=== PATIENT | female | born 1990 | race Caucasian/White ===

== ENCOUNTER → 2020-02-26 13:01 | Outpatient (CLI) | payer OTHER, SELFPAY ==
[2020-02-26 12:54] VITALS: BMI 28.2
--- NOTE | 2020-02-26 13:01 | RAD_ITS ---
STUDY: X-RAY - LEFT KNEE REASON FOR EXAM: History of lateral patellar subluxation. TECHNIQUE: 2 view(s) of the knee. COMPARISON: None. FINDINGS: Normal visualized distal femur. Normal visualized proximal tibia and fibula. Normal proximal tibiofibular articulation. Normal medial femorotibial compartment. Normal lateral femorotibial compartment. Although the patellofemoral articulation is congruent on the sunrise view, there is lateral subluxation of the patella on the AP upright view. The soft tissue structures are unremarkable. RAD/Knee 1 or 2 Views IMPRESSION: Lateral subluxation of the patella only visualized on the upright view. Electronically Signed: Jim Huggins MD at 13:49 EDT Tel , Service support ,
== END ==
LOC: HPRAD 13:01
PROVIDERS: PCP Nurse Practitioner Family; Referring Provider Orthopaedic Surgery; Visit Provider Orthopaedic Surgery
DX: M25.362 Other instability, left knee (principal)
CPT/HCPCS: 73560

== ENCOUNTER → 2020-03-05 12:55 | Outpatient (CLI) | payer OTHER, SELFPAY ==
[2020-02-26 12:54] VITALS: BMI 28.2
--- NOTE | 2020-03-05 12:56 | MRI_ITS ---
STUDY: MRI LEFT KNEE REASON FOR EXAM: Left knee pain, patellar instability, symptoms for 10 years, prior surgery. TECHNIQUE: Standardized fat and water weighted pulse sequences were obtained in all 3 orthogonal planes. COMPARISON: Radiographs 02/26/2020. FINDINGS: Normal medial meniscus. Normal hyaline cartilage of the medial femorotibial compartment. Normal medial femoral condyle and tibial plateau. Normal medial collateral ligamentous complex (MCL). Normal distal semimembranosus, gracilis and semitendinosus tendons. Normal lateral meniscus. Normal hyaline cartilage of the lateral femorotibial compartment. Normal lateral femoral condyle and tibial plateau. Normal proximal tibiofibular articulation. Normal lateral collateral (fibular) ligament. Normal popliteus tendon. Normal biceps femoris tendon. Normal anterior cruciate ligament (ACL). Normal posterior cruciate ligament (PCL). There is lateral tilt and lateral subluxation of the patella (T2 axial image 10). There is low to intermediate grade chondromalacia adjacent to the inferior median ridge (T2 axial image 10). Normal medial and lateral patellar retinaculum. Normal quadriceps tendon. There is patella stephanie. There is mild edema in Hoffa''s fat pad inferior to the lateral aspect of the patellofemoral articulation (T2 sagittal images 18, 19). There is a small joint effusion. There is an intra-articular body or focal synovitis at the medial aspect of the patellofemoral articulation (T2 sagittal images 13, 14) measuring 0.7 cm in length. There is a small popliteal cyst (T2 coronal images 8, 9). The otherwise visualized osseous structures are unremarkable. 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 Intra-articular body or focal synovitis at the medial aspect of the patellofemoral articulation. Small popliteal cyst. Electronically Signed: Jim M. Huggins, MD at 14:20 EDT Tel , Service support ,
== END ==
PROVIDERS: PCP Nurse Practitioner Family; Referring Provider Orthopaedic Surgery; Visit Provider Orthopaedic Surgery
DX: M22.8X2 Other disorders of patella, left knee (principal)
CPT/HCPCS: 73721

== ENCOUNTER → 2020-04-03 | Outpatient (CLI) | payer OTHER, SELFPAY ==
[2020-04-03 13:47] VITALS: BMI 28.2
[2020-04-09 08:48] LABS: HPV APTIMA, High Risk Negative (Negative)
== END | disposition home or self-care (01) ==
LOC: LABSPEC 16:29
PROVIDERS: PCP Nurse Practitioner Family; Referring Provider Nurse Practitioner Women's Health; Visit Provider Nurse Practitioner Women's Health
DX: Z12.4 Encounter for screening for malignant neoplasm of cervix (principal)
CPT/HCPCS: 87624; 88175; G0145

== ENCOUNTER 2020-04-23 15:35 | Observation (INO) | payer OTHER, SELFPAY ==
[2020-03-20 12:38] VITALS: BMI 28.2
--- NOTE | 2020-03-26 03:37 | HP_ITS ---
I have re-examined the patient. There are no clinical changes since date of exam. Intake Intake Visit Reasons: LEFT KNEE Is patient in pain?: Yes Allergies acetaminophen [From Vicodin] Adverse Reaction (Verified 04/30/17 21:52) Rash hydrocodone [From Vicodin] Adverse Reaction (Verified 04/30/17 21:52) Rash Medications hydroxyzine HCl 10 mg tablet 10 mg PO tab 02/26/20 [History Confirmed 03/20/20] sertraline 50 mg tablet tab PO 02/26/20 [History Confirmed 03/20/20] buspirone 7.5 mg tablet 7.5 mg PO tab 03/20/20 [History Confirmed 03/20/20] PFSH Medical History (Updated 02/26/20 @ 12:54 by Melba Gasca) Anxiety (Acute) Arthritis (Acute) Depression (Acute) Hyperlipemia (Acute) Social History (Updated 03/26/20 @ 15:[address] Steffanie Greene DO) Smoking Status: Never smoker HPI LEFT KNEE: Surgical H&P: Yes Details: Parts of this documentation were recorded by a scribe, this documentation accurately reflects the service provided and the decisions made by me, Dr. Steffanie Greene DO 03/20/20 1237. ARIANA LAUREN is a 29 year old F here today for F/U on right knee after having MRI of the knee for multiple dislocations of the patella. Patient states she is having increased pain but it may be due to working in the garden more. States that after her last appointment she hyperextended the right knee while chasing her dog. Denies numbness, tingling or other associated symptoms. patellofme pain, not better with nsaids. Denies numbness, tingling or other associated symptoms. ROS Musc Reports joint pain, Reports joint swelling, Denies numbness, Denies radiating pain into limb, Reports stiffness, Denies tingling Skin/Breast Denies redness, Denies lesions, Denies itching, Denies rash, Denies skin swelling Neuro No numbness, No tingling Ortho Exam Right Knee Knee ROM: Yes ROM-Extension -20 to 0, Yes ROM-Flexion 0-140, Yes ROM-Passive Extension -10 to 0, Yes ROM-Passive Flexion 0-140 Examination: Yes Crepitus, Yes Pain with flexion Stability: NML: Anterior Drawer, NML: Belkis, NML: Posterior Drawer, NML: Valgus 0, NML: Valgus 30, NML: Varus 0, NML: Varus 30, NML: Dial 90, NML: Dial 30 Apprehension with Lateral Translation: Yes Patellar Tilt Normal: No Patella Grind: Yes Assessment & Plan Problems 1. Subluxation of left patella, subsequent encounter S83.002D 2. Maltracking of left patella M22.8X2 Plan Personally reviewed patients MRI of the left knee. Patient educated that she has patellofemoral friction syndrome and Lateral tilt and lateral subluxation of the patella. Treatment options include do nothing or PT or surgery option. Educated that surgery option is a MPFL repair along with a TTO of the left knee. If this is not effective then she would be looking at another surgical option of pf arthroplasty dep on scope findings. Reviewed the pre-operative plans with the patient. Risks and benefits of the procedure were fully explained, including but not limited to infection, neurovascular injury, continued pain, arthritis, stiffness, need for further surgery, re-injury, DVT, PE, general risks of anesthesia, and loss of limb or life. The patient understands all the risks and does wish to proceed with written consent for left knee arthroscopy patellofemoral chondroplasty possible MPFL reconstruction possible tibial tubercle osteotomy, repair as indicated. Follow up to sign surgery consent or sooner if pain, swelling, numbness or associated symptoms, or concerns develop. All questions answered. Patient in agreement of plan. We discussed the current risk associated COVID-19. While it is understood that there is a community spread of COVID 19 the risk of sandra COVID-19 while at [facility] is very low, however, the risk cannot be completely mitigated because of the community spread of the disease. We discussed in detail the risk of exposure to and or potential harm posed by the COVID-19 virus with having a surgery/procedure at this time versus the risk of delaying the surgery/procedure. Is not possible to know either the risk of delaying the surgery procedure or chance of getting an infection with perfect accuracy, but a joint decision was made to proceed at this time with a schedule surgery/procedure as indicated on the consent form. Patient was notified that we will need to comply with any screening or testing [facility] wishes to perform or that surgery may be delayed for any positive results. Coding Level of Care Code Off vis,est,level 4 Diagnoses Subluxation of left patella, subsequent encounter S83.002D ??Encounter type: subsequent encounter ??Laterality: left Maltracking of left patella M22.8X2 03/26/20 1537 <Electronically signed by Steffanie funk DO> Date _ Steffanie Greene DO
[2020-04-11 14:19] VITALS: BMI 28.2
[2020-04-23] VITALS (11 sets, daily range): BP systolic 90–109; BP diastolic 42–90; PULSE 67–97; RESP 16–18; TEMP 36.3–36.9; O2SAT 91–99; BMI 28.8
[2020-04-23] MEDS: Lactated Ringers 1,000 ML 100 ML IV ×2 (10:58→16:27)
[2020-04-23] MEDS: Cefazolin 2 GM in 0.9% Normal Saline 100 ML IV (12:22)
--- NOTE | 2020-04-23 12:45 | RAD_ITS ---
STUDY: X-RAY - LEFT KNEE REASON FOR EXAM: Left tibial tubercle osteotomy, medial patellofemoral ligament reconstruction. TECHNIQUE: 4 intraoperative images of the knee. COMPARISON: Radiographs 02/26/2020. FINDINGS: There are 2 orthopedic screws transfixing an anterior tibial tubercle osteotomy without evidence of complication. Electronically Signed: Jim Huggins MD at 15:30 EDT Tel , Service support , RAD/Knee 1 or 2 Views
[2020-04-23] MEDS: Epinephrine (1 mg/ml) 1 MG/ML VIAL (12:48)
[2020-04-23] MEDS: Bupiv/Epi 0.25% 30 ML Vial (15:35)
[2020-04-23] MEDS: Mupirocin Ointment 22gm Tube 1 APPLIC TOPICAL (15:41)
--- NOTE | 2020-04-23 15:41 | DCINST_ITS ---
Discharge Diet: No Restrictions - ttwb left leg, keep compressive dressings on until seen by william postop tuesday, ankle pumps/ice elevate toes above nose, call with concerns, brace locked in extension during ambulation and at night, may rom 0-30 while seated Discharge Activity: May Not Drive May shower in (days): 1 Ice area for (Minutes): 20 - Every hour while awake. Weight Bearing Status: Weight bearing as tolerated Keep extremity elevated above heart level: Operative Extremity Call your doctor if your incision/area has: Continuous Slow Oozing, Sudden Increased Bleeding, Increased Pain/ Swelling, Increased Redness, Foul Smelling Discharge Call your doctor if you observe: Fever of 101 or Higher, Coldness, Increased Pain, Numbness or Tingling, Change in Color, Calf discomfort Allergies/Adverse Reactions: Allergies acetaminophen [From Vicodin] Adverse Reaction (Verified 04/23/20 10:56) Rash hydrocodone [From Vicodin] Adverse Reaction (Verified 04/23/20 10:56) Rash Medications to take at Discharge sertraline 50 mg tablet 50 tab PO DAILY 02/26/20 buspirone 7.5 mg tablet 7.5 mg PO TID tab 04/03/20 Ascorbic Acid [Vitamin C] 1,000 mg PO DAILY 04/14/20 Vits [Prenatabs FA] 1 tab PO DAILY 04/14/20 Red Yeast Rice 600 mg PO DAILY 04/14/20 Vitamin E 200 unit PO DAILY 04/14/20 Ondansetron [Zofran] 8 mg PO Q8H PRN PRN #20 tab 04/23/20 Oxycodone HCl/Acetaminophen [Percocet 5/325] 1 - 2 tab PO Q6H PRN PRN 5 Days #28 tab 04/23/20 The following prescriptions were given: Oxycodone HCl/Acetaminophen [Percocet 5/325] 1 - 2 tab PO Q6H PRN PRN 5 Days #28 tab PRN Reason: Pain Transmission Status: Received by [facility] Ondansetron [Zofran] 8 mg PO Q8H PRN PRN #20 tab PRN Reason: Nausea Transmission Status: Sent to [facility] Primary Care Physician: Cheryle Yanes NP-C [Primary Care Provider] - Test Results: Test results from this visit will be discussed in further detail at your follow- up appointment, if applicable. Please Follow Up With: Steffanie Greene, DO - [phone]
--- NOTE | 2020-04-23 15:43 | PCM.OPRPT ---
Report of Operation Date of Procedure: 04/23/20 Pre-Operative Diagnosis: left knee patellofemoral friction syndrome, patella chondromalacia, patella instability/h/o dislocation of left kneecap, Post-Operative Diagnosis: same Surgery/Procedure Performed:: left knee arthroscopy, patella chondroplasty, lateral release, mpfl reconstruction with gracilis allograft, tibial tubercle osteotomy primary care nurse practitioner: Jose Angulo Type of Anesthesia:: General, Local Anesthesiologist: Avila Cuadra Estimated Blood Loss (mL): 50cc Fluids Replaced: see anesthesia chart Description of Procedure: Preop note Patient is a 29-year-old female with continued left knee pain dislocation subluxation events. She had one recently as 2 weeks ago. Patient had a surgery sometime ago on her left knee was done in outside hospital. MRI confirms MPFL scarring as well as patella chondromalacia as well as lateral and medial patella friction syndrome. Risk benefits alternatives were discussed with patient. Risk including but not limited to blood loss, blood clot, infection, neurovascularly pot, failure procedure, loss of life and loss of limb. Patient is aware would like proceed with left knee arthroscopy repair as indicated. We did discuss preoperatively the risk of compartment syndrome of the left lower extremity which is what we will watch overnight and she will be kept overnight for evaluation. Patient is aware what the signs symptoms of this are as well. Operative note Nishaserge OCTAVIO We discussed the current risk associated COVID-19. While it is understood that there is a community spread of COVID 19 the risk of sandra COVID-19 while at [facility] is very low, however, the risk cannot be completely mitigated because of the community spread of the disease. We discussed in detail the risk of exposure to and or potential harm posed by the COVID-19 virus with having a surgery/procedure at this time versus the risk of delaying the surgery/procedure. Is not possible to know either the risk of delaying the surgery procedure or chance of getting an infection with perfect accuracy, but a joint decision was made to proceed at this time with a schedule surgery/procedure as indicated on the consent form. Patient was notified that we will need to comply with any screening or testing [facility] wishes to perform or that surgery may be delayed for any positive results. Patient's Patient seen and examined preop holding area. Left knee was marked. Patient brought to the operating please placed supine on the operating table. Sign, anesthesia, antibiotics were administered. Left leg was prepped and draped usual sterile technique with a tourniquet around her upper thigh. All bony prominences well-padded and SCDs placed on her cut on her left contralateral limb. We marked out our incision for anteromedial anterolateral placement as well as her MPFL on the femoral and then patella side. Left leg was then elevate exsanguinated tourniquet was raised to pressure of 250 torr. Timeout was performed. Then began our diagnostic arthroscopy using R 11 blade. Her patella sat quite laterally was abutting the lateral border of her trochlea and femur. She has significant chondromalacia inferior medial third proximal medial facet was intact as well as her lateral facet albeit with some grade 2 chondral changes. We then inserted a medial probe after creating her anteromedial portal under direct visualization. We shaved out the thickened synovitis anteromedial anterolateral. We then also resected back the unstable pieces of Cartilage that were on the patella side. We inserted probed the medial meniscus was intact to probing the medial femoral condyle medial tibial plateau and stable. Intact and stable performing the ACL and PCL present within the notch. The lateral meniscus was intact and stable probing the lateral femoral condyle lateral tibial plateau were intact and stable probing. We then decided to proceed with her MPFL reconstruction. The gracilis allograft was prepared in standard technique on the back table. We used fluoroscopy to ascertain the level of our incision down on the proximal medial patella. In standard technique we then drilled and placed 2 swivel locks using the ends of our graft to the proximal pole of the patella on the medial side. We then found the second and third layer and were able to dissect this down medially to where our incision for our femoral insertion side. We then drilled in standard technique aiming 30 degrees cephalad and anterior. We then overdrilled overreamed with a 7 and then just an 8 at the femoral cortex. We then used the Beath pin to bring our graft through the femoral tunnel. We then placed a 7 x 20 screw in order to fixate the graft to the bone. After this was done we then moved to our TDO. We made about a 7-1/2 cm skin incision starting from the tibial tubercle about centimeters proximal and down 6-minute 16 m. We used a 15 blade and then dissected down tenotomies of the patella tendon. We found the insertion site patella patella baja finding our medial lateral borders of her patella tendon. We demarcated this. We then released both the medial and lateral sides of muscular compartments and then used a Jauregui to elevate them off the bone. We then placed 2 guidewires about 6 degrees in the proximal and then 30 degrees distally and then used an oscillating saw to conform our cut. We then completed our cup proximally with an osteotome. We then moved the bone anterior medially about a centimeter to centimeter and a half. We placed 2 cut K wire years from the Arthrex set and then overdrilled the drilled and then overdrilled the near cortex and then placed our 4 5 screw proximally and distally after measuring appropriately and. We had good fixation at that time. We then irrigated the incision with copious amounts of sterile saline. And we placed bone cement on the anteromedial and then started the medial aspect start lateral aspect of our bony where we had moved the bone made our cut. We then gently brought the edges of the compartments back to our its insertion site. We closed the skin with 3-0 Vicryl as well and a running 4 Monocryl we closed the other with a anteromedial anterolateral portals with nylon and we closed the other and skin incisions with with 2-0 Vicryl and running 4-0 Monocryl. Sterile dressings and tourniquet was applied tourniquet and sterile dressings were applied and brace was applied. Tourniquet was deflated for total return 170 minutes. Patient taught procedure well no complication transfer recovery room in stable condition. Postoperative note Patient will be admitted for compartment monitoring, pain control and antibiotics Call with increased pain numbness tingling or other issues arise Follow-up on Tuesday Call with concerns This note was generated with [employer] dictation software. It may contain incorrect words, spelling, and punctuation that were not noted in checking the note before signing. A Grafts/Implants Used: mpfl swivel lock arthrex, 4.5 jared screws arthrex
[2020-04-23] MEDS: Morphine 2 MG/ML Syringe IV ×2 (18:13→22:22)
[2020-04-23] MEDS: busPIRone 5 MG Tablet 7.5 MG PO (18:50)
[2020-04-23] MEDS: HYDROcodone Bitartrate/Apap 5/325 Tablet PO (20:21)
[2020-04-23] MEDS: Cefazolin 1 GM/50 ML BAG IV (20:21)
[2020-04-24] MEDS: Lactated Ringers 1,000 ML 100 ML IV ×3 (01:39→21:53)
[2020-04-24 02:10] VITALS: BP 113/63; PULSE 87; RESP 16; TEMP 36.6; O2SAT 97
[2020-04-24] MEDS: Morphine 2 MG/ML Syringe IV ×5 (02:42→21:57)
[2020-04-24] MEDS: busPIRone 5 MG Tablet 7.5 MG PO ×3 (05:09→20:48)
[2020-04-24] MEDS: Cefazolin 1 GM/50 ML BAG IV (05:09)
[2020-04-24] MEDS: Sertraline 50 MG Tablet PO (05:10)
[2020-04-24 08:44] VITALS: BP 114/72; PULSE 96; RESP 18; TEMP 36.8; O2SAT 99
[2020-04-24 09:10] VITALS: O2SAT 94
--- NOTE | 2020-04-24 09:26 | NURSING ---
called materials management about obtaining a set of crutches for patient, will notify therapy when crutches are here so they can provide crutch training
[2020-04-24] MEDS: oxyCODONE 5 MG Tablet PO ×3 (10:36→20:47)
--- NOTE | 2020-04-24 11:40 | CASEMGMT ---
RN CM TOP IRONER CM to room to meet with patient for initial transition planning/care coordination assessment. RN JAKUB introduced self and role at [facility]. Pt voices understanding and consents to assessment at this time. Pt resting in bed. She is painful at this time, stating she was just medicated about an hour ago but declines wanting anything further at this time. RN CM offered to come back and complete assessment at a later time, but pt states this would be a good distraction and agreeable to talking w/RN CM and answering questions at this time. Pt is A/O at this time and answers all questions appropriately. Care providers, pharmacy, and demographics verified/updated at this time. PCP: GÓMEZ Yanes Specialists: Dr Greene--ortho, STRATEGIC PROCUREMENT MANAGER Preferred Pharmacy: [facility] in [place]. Pt aware Dr Greene has already e-scribed scripts to [facility] and she is agreeable to this. Insurance: MMO Prescription Benefit: Yes Living Will/HPOA: Pt does not currently have LW/HCPOA and declines info at this time. Pt made aware that she can contact as an out-pt and make appt in the future if she decides she would like to talk with someone about this or would like to utilize [facility] social work for advanced directive completion. Given Hospice/Home Health Aide Rac card with information and contact number. Pt expresses understanding. LNOK: , Brett. Has 3 children, ages 3, 5, and 6 Living Arrangements: Lives w/her and 3 children in 2-story home. Bedroom is on 2nd floor. Bathroom is on main floor. Pt states able to be FFSU and plans to sleep on main floor as she is recovering until she is able to navigate the stairs better. Was independent prior to surgery. works midnights and will not need to return to work until Tuesday night. Pt states has family that live nearby who plan on checking in on her and will be available to help if needed. Transportation: Pt drove prior to surgery. drives and will take her home @ discharge. DME: Does not have any DME. hand fabric cutter has placed call to [employer] management send crutches up for pt and PT has been ordered for crutches fitting. Pt states is interested in getting a BSC d/t the bathroom is far away from the bedroom on the main floor. She was made aware insurance does not typically cover for these unless she is room confined or floor confined and unable to get to bathroom safely. Pt stated, I'll probably only need it for a day or so anyways. She was made aware this may be able to be purchased at a local drug store or thrift store. HHC/SNF: No history of either and no needs identified. Pt states MD informed her she will be TTWB x 6 wks and then plans to do OP therapy after that and will f/u w/Dr Greene for this. Pt wishes to return home and states has no concerns with going home at time of discharge. CM to follow for any further discharge planning/needs. Pt voices no further concerns/needs at this time. Advised pt to ask for CM if any further questions/concerns/needs arise. Voices understanding. PLAN: Home w/family support and discharge plans in place. Lanette DELGADO RN CM
[2020-04-24 14:29] VITALS: BP 112/54; PULSE 100; RESP 16; TEMP 36.9; O2SAT 97
[2020-04-24] MEDS: 0.9% Saline Lock 10 ML Syringe IV ×2 (16:47→21:57)
--- NOTE | 2020-04-24 17:24 | PN.ORTHO_ITS ---
Subjective: Patient states that she is doing ok but states that she is having a lot of pains. She states that it was exacerbated by being up with physical therapy. She was trying to just use PO meds but ended up needing to have the morphine after PT. She states that she has been doing her ankle pumps and she denies any calf pains or tightness, numbness or tingling, color changes in her foot, or hardness in her lower leg. Objective: PAtient seen at bedside during exam. Patient was not in acute distress at the same time showed evident signs of pain/discomfort. She was able to communicate appropriately at the same time was a little teary eyed talking about her pains. Her bandage was clean and dry and her underlying compartments were soft and non- tender. She had no calf pains and a negative homans sign. She had intact sensation throughout the extremity (through overlying dressing as well). She had intact motor function of the ankle/foot/toes and normal distal pedal pulses. - Physical Exam Vitals/I&O's: Vital Signs Temp Pulse Resp BP Pulse Ox 98.5 F 100 16 112/54 L 97 04/24/20 14:29 04/24/20 14:29 04/24/20 14:29 04/24/20 14:29 04/24/20 14:29 Oxygen Flow Rate (L/min) 2 Oxygen Delivery Method Room Air Weight: 152 lb 5.431 oz Body Mass Index (BMI) 28.8 Intake and Output for Last 24 Hours 04/22/20 04/23/20 04/24/20 23:59 23:59 23:59 Intake Total 2049 / 0 1513.33 / 1513.33 Output Total 1200 / 1200 1550 / 1550 Balance 850 / 850 -36.67 / -36.67 General: Alert, Oriented x3, Cooperative, No apparent distress - She is having evident discomfort Oral: Moist Mucosa Lungs: Normal air movement Extremities: Capillary Refill Less than 3 Seconds - Patient has soft compartments of the lower leg. She has intact motor function of the ankle/foot/toes. She has normal sensation to ligh touch in the lower extremity. She has no calf tenderness and negative homans, No Calf Tenderness Current Medications Buspirone HCl (Buspar) 7.5 mg PO TID [facility] Last Admin: 04/24/20 14:34 Dose: 7.5 mg Documented by: Lactated Ringer's () 1,000 mls @ 100 mls/hr IV .Q10H [facility] Last Admin: 04/24/20 12:17 Dose: 100 mls/hr Documented by: Morphine Sulfate () 2 mg IV Q4H PRN PRN PRN Reason: Pain Score 6-10/10 Last Admin: 04/24/20 16:47 Dose: 2 mg Documented by: Ondansetron HCl (Zofran) 4 mg IV Q4H PRN PRN PRN Reason: NAUSEA Oxycodone HCl (Oxyir) 5 - 10 mg PO Q4H PRN PRN PRN Reason: Pain Score 1-10/10 Last Admin: 04/24/20 14:46 Dose: 10 mg Documented by: Sertraline HCl (Zoloft) 50 mg PO DAILY [facility] Last Admin: 04/24/20 05:10 Dose: 50 mg Documented by: Sodium Chloride () 10 - 40 ml IV UD PRN PRN Reason: SALINE FLUSH Last Admin: 04/24/20 16:47 Dose: 10 ml Documented by: Medical Necessity - Tobacco Use Smoking Status: Never smoker Tobacco Use: Non-smoker Assessment/Plan All Active Problems (Last Updated 04/03/20 @ 13:32 by Stephanie Huggins) History of uterine fibroid (Acute) Menorrhagia with irregular cycle (Acute) Patient seen at bedside 1 day post-op Left knee TTO and MPFL reconstruction. Patient is still having moderate amt of pain. She has started on PO medications in hopes of transitioning to home. She did well at PT but states that afterwards her pains were bad requiring her to have some morphine. She is to try and stick with PO meds as much as possible as that is what she will have at home Dressing was dry on inspection She has soft lower leg compartments and no signs of DVT She is to continue with ankle pumps and elevating as well as ice. She is going to see PT/OT tomorrow. Continue to be in the brace at all times.
[2020-04-24 20:45] VITALS: BP 133/82; PULSE 91; RESP 16; TEMP 37.1; O2SAT 100
[2020-04-24] MEDS: Ibuprofen 600 MG Tablet PO (23:09)
[2020-04-25] MEDS: Acetaminophen 325 MG Tablet 650 MG PO ×4 (01:11→14:39)
[2020-04-25] MEDS: oxyCODONE 5 MG Tablet PO ×4 (01:11→14:39)
[2020-04-25 02:46] VITALS: BP 107/74; PULSE 102; RESP 16; TEMP 37.1; O2SAT 95
[2020-04-25] MEDS: Ibuprofen 600 MG Tablet PO ×2 (05:02→14:40)
[2020-04-25] MEDS: busPIRone 5 MG Tablet 7.5 MG PO ×2 (05:03→13:40)
[2020-04-25] MEDS: Sertraline 50 MG Tablet PO (09:27)
[2020-04-25 10:36] VITALS: BP 117/50; PULSE 82; RESP 16; TEMP 36.4; O2SAT 94
--- NOTE | 2020-04-25 14:06 | PCM.PN.ORT ---
Subjective: PAtient today states that she is doing a whole lot better. She states that she was still having a lot of pains in the middle of the night but adjustments made in her meds really have helped her pain. She was in normal clothes and states that she just feels a lot better. She has been able to eat and drink today tolerated the meds well. She has continued with ankle pumps denies calf pains/discomfort, hardness of the leg, skin color changes, or numbness/tingling. Objective: Patient seen at her bedside today. PAtient appears much more awake and alert today. She is not teary eyed and is able to smile and carry conversation pleasantly with good eye contact and appropriate response in conversation. She looks much more comfortable than yesterday. Her overlying dressing is still clean and dry with brace still appropriately placed. She has soft and non-tender compartments. There is no calf tenderness and a negative homans sign. She has intact sensation throughout the extremity and normal distal pedal pulses. She has intact motor function of the ankle/foot/toes. - Physical Exam Vitals/I&O's: Vital Signs Temp Pulse Resp BP Pulse Ox 97.6 F L 82 16 117/50 L 94 04/25/20 10:36 04/25/20 10:36 04/25/20 10:36 04/25/20 10:36 04/25/20 10:36 Oxygen Flow Rate (L/min) 2 Oxygen Delivery Method Room Air Weight: 152 lb 5.431 oz Body Mass Index (BMI) 28.8 Intake and Output for Last 24 Hours 04/23/20 04/24/20 04/25/20 23:59 23:59 23:59 Intake Total 2049 3173.33 / 3173.33 1488.33 / 1488.33 Output Total 1200 / 1200 1550 / 1550 Balance 850 / 850 1623.33 / 1623.33 1488.33 / 1488.33 General: Alert, Oriented x3, Cooperative, No apparent distress - no evidence of discomfort today Lungs: Normal air movement Extremities: No Calf Tenderness Neurological: Sensory exam intact to light touch and pain Psych/Mental Status: Normal Affect, Appropriate Current Medications Acetaminophen (Tylenol) 650 mg PO Q4H PRN PRN PRN Reason: Pain Score 1-06/14 Last Admin: 04/25/20 10:41 Dose: 650 mg Documented by: Buspirone HCl (Buspar) 7.5 mg PO TID [facility] Last Admin: 04/25/20 13:40 Dose: 7.5 mg Documented by: Ibuprofen (Motrin) 600 mg PO Q6H PRN PRN PRN Reason: Pain Score 1-10/10 Last Admin: 04/25/20 05:02 Dose: 600 mg Documented by: Morphine Sulfate () 2 mg IV Q4H PRN PRN PRN Reason: Pain Score 6-10/10 Last Admin: 04/24/20 21:57 Dose: 2 mg Documented by: Ondansetron HCl (Zofran) 4 mg IV Q4H PRN PRN PRN Reason: NAUSEA Oxycodone HCl (Oxyir) 5 - 10 mg PO Q4H PRN PRN PRN Reason: Pain Score 1-10/10 Last Admin: 04/25/20 10:42 Dose: 10 mg Documented by: Sertraline HCl (Zoloft) 50 mg PO DAILY [facility] Last Admin: 04/25/20 09:27 Dose: 50 mg Documented by: Sodium Chloride () 10 - 40 ml IV UD PRN PRN Reason: SALINE FLUSH Last Admin: 04/24/20 21:57 Dose: 10 ml Documented by: Medical Necessity - Tobacco Use Smoking Status: Never smoker Tobacco Use: Non-smoker Assessment/Plan All Active Problems (Last Updated 04/03/20 @ 13:32 by Stephanie Huggins) History of uterine fibroid (Acute) Menorrhagia with irregular cycle (Acute) Patient seen day 2 post op for left knee TTO and MPFL reconstruction. Patient is doing much better today. She states that her pains are much more controlled and she has not needed anything other than the PO meds since last night. She was able to get dressed today and is alert and awake with pleasant conversation. Her compartments continue to be soft today No signs of DVT at this time She is neurovascularly intact in the extremity. At this time with her medication regiemen controlling her pains she can plan on going home as long as she feels comfortable (which she states that she does) She will want to make sure and continue icing and elevating along with her ankle pumps notify of any swelling, skin color changes, calf pains/tenderness, or other symptoms. She should remain in the brace at all times. Can change the dressing on Tuesday or she can just wait until Tuesday morning if needed
[2020-04-25 14:58] VITALS: BP 113/68; PULSE 76; RESP 16; TEMP 36.7; O2SAT 98
== END 2020-04-25 18:49 | disposition home or self-care (01) ==
LOC: MS3 04-24 07:14 → SDC 04-25 07:46
PROVIDERS: Anesthesiology; Admitting Provider Orthopaedic Surgery; PCP Nurse Practitioner Family; Referring Provider Orthopaedic Surgery; Visit Provider Orthopaedic Surgery
PROC: (CPT 29870; principal; 2020-04-23 11:40)
DX: M22.02 Recurrent dislocation of patella, left knee (principal); M22.42 Chondromalacia patellae, left knee; F32.9 Major depressive disorder, single episode, unspecified; F41.9 Anxiety disorder, unspecified; E78.5 Hyperlipidemia, unspecified; M19.90 Unspecified osteoarthritis, unspecified site; X58.XXXD Exposure to other specified factors, subsequent encounter; Z79.899 Other long term (current) drug therapy; Z11.59 Encounter for screening for other viral diseases; N92.0 Excessive and frequent menstruation with regular cycle; J45.909 Unspecified asthma, uncomplicated
CPT/HCPCS: 01400; 27427; 29877; 73560; 76000; 87635; 94799; 96361; 96365; 96366; 96375; 96376; 97110; 97116; 97161; 97162; 97530; 99218; 99251; C1713; J7120; A4216; G0378; G0379; G0463; J2405; U0003

== ENCOUNTER → 2025-01-10 | Outpatient (CLI) | payer MEDICAID, SELFPAY ==
--- NOTE | 2025-01-10 07:50 | CT_ITS ---
PROCEDURE: SINUS/FACIAL BONE REASON FOR EXAM: CHRONIC SINUSITIS TECHNIQUE: CT of the paranasal sinuses without contrast. Coronal and Sagittal reconstruction series were provided. One or more dose reduction techniques were used (e.g., Automated exposure control, adjustment of the mA and/or kV according to patient size, use of iterative reconstruction technique). COMPARISON: None. FINDINGS: The paranasal sinuses appear well formed without wall thickening or sclerosis. Status post ORIF bilateral mandible, mentum and bilateral maxillary ridge anterior maxillary sinus wall. Periapical lucency associated with the mandibular lateral incisor for example axial 21. TMJs appear normally located. There is appearance of bilateral medial inferior maxillary sinus wall defect with the inferior turbinates partially protruding through the defects for example coronal 42, correlate with history. Mild mucoperiosteal thickening lower maxillary sinuses. The other paranasal sinuses appear clear. No air-fluid levels. Linear soft tissue band across the right maxillary sinus ostium for example coronal 33. The left ostiomeatal complex, bilateral frontoethmoidal and sphenoethmoidal recesses appear clear. Mild rightward nasal septal deviation with a small nasal spur axial 66. The orbits appear within limits. Infratemporal fossa fat appears preserved. Pterygopalatine foramen appear within limits. Bilateral symmetric appearing fossa of Rosenmuller appear within limits. The mastoids, middle ear and internal auditory canal appear within limits. CT/Sinus/Facial Bone IMPRESSION: Status post facial ORIF as above. There is appearance of bilateral medial inferior maxillary sinus wall defect wi th the inferior turbinates partially protruding through the defects for example coronal 42, correlate with history. Mild mucop eriosteal thickening bilateral lower maxillary sinuses. The other paranasal sinuses appear clear. No air-fluid levels. Reading Location: [id number]
== END | disposition home or self-care (01) ==
PROVIDERS: PCP Nurse Practitioner Family; Referring Provider Otolaryngology; Visit Provider Otolaryngology
DX: J32.8 Other chronic sinusitis (principal)
CPT/HCPCS: 70486